=== PATIENT | female | born 1980 | race Caucasian/White ===

== ENCOUNTER 2019-06-22 05:01 | Emergency (ER) | payer OTHER ==
[~2019-06-22] VITALS: Ht 165.1 cm; Wt 54.4 kg
--- NOTE | 2019-06-22 05:15 | NUR ---
PT AAOX4. AMBULATORY. PT C/O LOWER ABD PAIN 10/10 "BURNING." +N/V SINCE MIDNIGHT. PER PATIENT "IM HAVING MENSTURAL CRAMPS." PT PLACED ON MONITOR AND PULSE OX. RR EVEN AND UNLABORED. AWAITING MD FOR EVAL.
[2019-06-22] MEDS ORDERED: IV D5/ 0.9% NACL 1,000 ML IV ONE (05:26)
--- NOTE | 2019-06-22 05:26 | NUR ---
URINE COLLECTED AND SENT TO LAB
[2019-06-22] MEDS ORDERED: KETOROLAC TROMETHAMINE INJ 30 MG/ML VIAL ONE (05:30)
[2019-06-22] MEDS ORDERED: KETOROLAC TROMETHAMINE INJ 30 MG/ML VIAL IV ONE (05:30)
[2019-06-22] MEDS ORDERED: ONDANSETRON HCL/PF 4 MG/2 ML VIAL ONE (05:30)
[2019-06-22] MEDS ORDERED: ONDANSETRON HCL/PF 4 MG/2 ML VIAL IVP ONE (05:30)
--- NOTE | 2019-06-22 05:35 | NUR ---
Technical Operations Vice President at bedside for lab collection
[2019-06-22 05:42] LABS: BASOPHILS % (AUTO) 0.4 % (0.0-2.0); HEMATOCRIT 39 % (33-45); HEMOGLOBIN 12.7 g/dL (11.5-14.8); LYMPHOCYTES # (AUTO) 0.9 /CMM (0.8-4.8); MEAN CORPUSCULAR HGB CONC 32 g/dl (31.0-36.0); MEAN CORPUSCULAR VOLUME 85 fL (82-100); MONOCYTES # (AUTO) 0.4 /CMM (0.1-1.30); MONOCYTES % (AUTO) 2.8 % (2.0-12.0); NEUTROPHILS # (AUTO) 11.2 /CMM (1.8-8.9); NEUTROPHILS % (AUTO) 89.8 % (43.0-81.0); PLATELET COUNT (AUTO) 275 /CMM (150-450); RED BLOOD CELL COUNT(AUTO) 4.62 MIL/uL (4.0-5.2); WHITE BLOOD COUNT (AUTO) 12.5 K/uL (4.3-11.0)
[2019-06-22 05:56] LABS: CALCIUM, SERUM 8.3 mg/dL (8.5-10.1); CREATININE 0.7 mg/dL (0.6-1.3); POTASSIUM 3.7 mmol/L (3.5-5.1)
[2019-06-22 06:02] LABS: ALBUMIN 3.9 g/dL (3.4-5.0); BILIRUBIN,DIRECT 0.1 mg/dL (0.0-0.2); BILIRUBIN,TOTAL 0.2 mg/dL (0.2-1.0); TOTAL PROTEIN, SERUM 7.2 g/dL (6.4-8.2)
--- NOTE | 2019-06-22 06:10 | NUR ---
Patient is resting comfortably in bed with eyes closed. Easily aroused. VSS. at bedside.
--- NOTE | 2019-06-22 06:15 | NUR ---
PT SLEEPING. AT BEDSIDE.
--- NOTE | 2019-06-22 06:39 | NUR ---
PT TOLERATED PO CHALLENGE.
--- NOTE | 2019-06-22 06:46 | NUR ---
Patient discharged to home in stable condition. Written and verbal after care instructions given. Patient verbalizes understanding of instruction and RX. IV removed. Catheter intact and site benign. Pressure and 4x4 applied to site. No bleeding noted. PT ambulatory with a steady gait.
[2019-06-22 06:47] VITALS: BP 102/56
== END 2019-06-22 06:48 | disposition home or self-care (01) ==
LOC: ER 05:05
DX: N94.6 Dysmenorrhea, unspecified (principal); R11.2 Nausea with vomiting, unspecified
CPT/HCPCS: 36415; 80048; 80076; 83690; 84703; 85025; 85730; 96361; 96374; 96375; 99283; J1885; J2405; J7042; J3490